=== PATIENT | female | born 1980 | race Caucasian/White ===

== ENCOUNTER 2017-03-21 21:44 | Emergency (ER) | payer BC ==
[2017-03-22 00:47] LABS: HEMOGLOBIN 14.2 gm/dl (12.3-15.3); RED BLOOD COUNT 4.9 M/UL (4.00-5.10)
[2017-03-22 01:02] LABS: BUN/CREATININE RATIO 8 (0-10)
== END 2017-03-22 03:13 | disposition home or self-care (01) ==
LOC: ER1 21:44
PROVIDERS: Physician Assistant
DX: R10.823 Right lower quadrant rebound abdominal tenderness (principal); E23.2 Diabetes insipidus; Z88.8 Allergy status to other drugs, medicaments and biological substances; Z79.899 Other long term (current) drug therapy; Z90.49 Acquired absence of other specified parts of digestive tract
CPT/HCPCS: 36415; 80053; 81001; 83690; 84703; 85025; 87086; 96374; 96375; 99284; J1885; J2270; J2405; J7030; J7050; Q9962

== ENCOUNTER → 2020-12-29 | Outpatient (CLI) | payer BC ==
[2020-12-29 12:24] LABS: HEMOGLOBIN 14.6 gm/dl (12.3-15.3); RED BLOOD COUNT 4.87 M/UL (4.00-5.10)
[2020-12-29 12:43] LABS: BUN/CREATININE RATIO 8 (0-10)
== END ==
LOC: LAB 11:17
PROVIDERS: Internal Medicine
DX: R79.82 Elevated C-reactive protein (CRP) (principal); R76.8 Other specified abnormal immunological findings in serum; D89.89 Other specified disorders involving the immune mechanism, not elsewhere classified; M25.50 Pain in unspecified joint
CPT/HCPCS: 36415; 80053; 85025